=== PATIENT | male | born 1955 | race Caucasian/White ===

== ENCOUNTER 2019-03-21 04:49 | Emergency (ER) | payer OTHER ==
[~2019-03-21] VITALS: Ht 177.8 cm; Wt 94.3 kg
--- NOTE | 2019-03-21 04:49 | NUR ---
0449 - Patient to ER bed 1 to gown for evaluation. Side rails up.
--- NOTE | 2019-03-21 04:49 | NUR ---
0449 - Pt LEWIS from [facility]. Pt was ambulating to restroom w/ walker, tripped over a rug. Pt fell and hit left shoulder on shower ledge. Pt denies pain at this time. Pt denies hitting head, denies head neck or back pain, denies LOC. Pt is A&Ox4. Vss. Awaiting MD key.
[2019-03-21 04:52] VITALS: BP_SYST 154
--- NOTE | 2019-03-21 04:55 | NUR ---
0455 - ER at bedside examining patient.
[2019-03-21] MEDS ORDERED: LIP80 PO (05:01)
[2019-03-21] MEDS ORDERED: ESCI10TA PO (05:01)
[2019-03-21] MEDS ORDERED: ASCO500T20 PO (05:01)
[2019-03-21] MEDS ORDERED: GLIP10TA11 PO (05:02)
[2019-03-21] MEDS ORDERED: LACO100T2 PO (05:03)
[2019-03-21] MEDS ORDERED: HYDR25TA4 PO (05:03)
[2019-03-21] MEDS ORDERED: LEVE1000 PO (05:04)
[2019-03-21] MEDS ORDERED: LEVO125T8 PO (05:05)
[2019-03-21] MEDS ORDERED: LISI10TA5 PO (05:06)
[2019-03-21] MEDS ORDERED: LIRA0.6P SQ (05:06)
[2019-03-21] MEDS ORDERED: METF1000 PO (05:07)
[2019-03-21] MEDS ORDERED: MULT-1100 PO (05:07)
[2019-03-21] MEDS ORDERED: ONDA4TAB5 PO (05:09)
[2019-03-21] MEDS ORDERED: OXCA600T5 PO (05:09)
[2019-03-21] MEDS ORDERED: TEMO140C5 PO (05:10)
[2019-03-21] MEDS ORDERED: PROC10TA13 PO (05:10)
[2019-03-21] MEDS ORDERED: ZINC220T PO (05:11)
[2019-03-21] MEDS ORDERED: BACITRACIN 1 GM OINT TP ONE ×2 (05:30→05:39)
--- NOTE | 2019-03-21 05:45 | NUR ---
0545 - [facility] contacted to pick pt up to return home, states they will not have anyone available to pick him until after 0900.
--- NOTE | 2019-03-21 06:08 | NUR ---
0608 - Pt's daughter contacted, states she is able to come cotton picker pt, states she will be here in about 30 minutes. Pt continues to be resting comfortably in bed, no distress, VSS, resp even and unlabored denies pain at this time
[2019-03-21 06:50] VITALS: BP_SYST 106
== END 2019-03-21 06:08 | disposition home or self-care (01) ==
LOC: SED 04:49
DX: S40.012A Contusion of left shoulder, initial encounter (principal); S50.811A Abrasion of right forearm, initial encounter; E11.9 Type 2 diabetes mellitus without complications; I10 Essential (primary) hypertension; E78.5 Hyperlipidemia, unspecified; Z79.899 Other long term (current) drug therapy; W18.09XA Striking against other object with subsequent fall, initial encounter; Y93.89 Activity, other specified; Y92.89 Other specified places as the place of occurrence of the external cause; Y99.8 Other external cause status
CPT/HCPCS: 73030; 99283; 99284